=== PATIENT | female | born 1945 ===

== ENCOUNTER 2022-11-12 07:58 | Outpatient (OUT) | payer MEDICARE, OTHER, SELFPAY ==
--- NOTE | 2022-11-12 08:01 | VEIN_ITS ---
[address] [address] Patient Name: ELADIO BHATIA MRN: [id number] date: 1945 Sex: F Assigned Patient Location: Current Patient Location: Accession/Order Number: [id number] Exam Date: 11/12/2022 08:05 Report Date: 11/12/2022 10:32 At the request of: AMIE NULL Procedure: VC INJ Foam Sclerosant WUS LOOM REPAIRER PROCEDURE: VC INJ Foam Sclerosant WUS LOOM REPAIRER COMPARISON: None. HISTORY: painful varicose veins i83.813 Pre-operative Diagnosis: CEAP class C3 venous insufficiency with pain, tenderness, edema and incompetent branch saphenous vein(s), chronic venous insufficiency right leg secondary to venous incompetence Post-operative Diagnosis: CEAP class C3 venous insufficiency with pain, tenderness, edema and incompetent branch saphenous vein(s), chronic venous insufficiency right leg secondary to venous incompetence Procedure Performed: 1. Ultrasound-guided microfoam chemical ablation with Varithenaregistered 2. Intraoperative ultrasound guidance Physician: Octavio Malone M.D. Anesthesia: None Indications for Procedure: 77 year old female. Symptoms including lower extremity dilated bulging veins, pain, throbbing for many years despite conservative medical therapy including medical compression stockings, exercise and analgesics. Prior procedures include endovenous laser ablation. Multiple incompetent varicosities of the right leg. Duplex scan showed reflux and enlarged diameters up to 5 mm. The patient underwent informed consent including management options where the complications of infection, bleeding, pain, and skin injury were discussed. Particular attention was spent discussing thrombus extension and deep vein thrombosis as well as the possibility of pulmonary embolus and treatment with oral or injectable blood thinners. Procedure: The patient walked to the procedure room. All applicable staff donned appropriate apparel. A procedure timeout was performed to confirm correct patient, correct extremity, correct procedure, and correct room set-up including presence of all applicable supplies, devices, and drugs. A duplex ultrasound, performed by myself confirmed the location and incompetence of branch saphenous varicosities and their course was marked on the skin together with the dilated tributaries. The extent of treatment of the vein and the associated varicosities was determined through ultrasound mapping. The skin was prepped and then punctured with a butterfly needle and advanced under ultrasound guidance. The Varithenaregistered canister was activated and the canister was primed and purged as required in the instructions for use. Varithenaregistered was drawn into a sterile syringe. Varithenaregistered was slowly administered at 0.5-1.0 cc/second with close observation by ultrasound of its course in the vessels. Total volume utilized was: 14 mL (4 mL within an incompetent 4 mm varicosity medial to the ankle; 10 mL within the 5 mm varicosity of the proximal medial lower leg). Following administration of Varithenaregistered the leg was elevated and the patient was asked to repeatedly dorsiflex the ankle to limit flow of Varithenaregistered into perforating veins. Once appropriate spasm had been confirmed in the treated veins, the vascular catheter was removed from the leg and light pressure was applied over the puncture site for hemostasis. The common femoral and deep superficial veins were then evaluated for flow and compressibility prior to dressing placement. The lower extremity was kept elevated at 45 degrees above the horizontal and cording material was applied over the saphenous segments and tributaries to allow for eccentric compression over the target vessels including the targeted saphenous vein(s). A multilayer dressing was applied consisting of foam pads, coban and thigh-high 20-30 mm Hg compression elastic support hose were placed on the patient. The leg was lowered only after compression had been applied and the patient was immediately ambulatory. The patient ambulated 10 minutes under supervision and was without apparent concerns at time of release. Post-care instructions include advising patient to keep post-treatment bandages in place and dry for 48 hours, avoid extended periods of inactivity, avoid heavy exercise for one week, wear compression stockings on the treated leg continuously for two weeks, to walk daily for 10 minutes over the next month. The patient was instructed to take an anti-inflammatory medicine as needed and to follow up for color duplex scan of the Saphenous veins, the treated branch saphenous varicosities, the adjacent deep veins, and additional treatment within 7 days. PERSONNEL: LEON Irwin RN Electronically authenticated by: OCTAVIO MALONE Date: 11/12/2022 10:32
== END 2022-11-12 07:59 ==
LOC: VC 07:59
PROVIDERS: PCP Radiology Diagnostic Radiology; Visit Provider Radiology Diagnostic Radiology
DX: I83.813 Varicose veins of bilateral lower extremities with pain (principal)
CPT/HCPCS: 36466

== ENCOUNTER 2022-11-19 07:57 | Outpatient (OUT) | payer MEDICARE, OTHER, SELFPAY ==
--- NOTE | 2022-11-19 08:00 | VEIN_ITS ---
Patient: ELADIO BHATIA Exam Date: 11/19/2022 : 1945 Gender:F Ordering : DR JAIME TOM M.D. Admission #: [id number] Family : Order #: [id number] CLICK HERE TO VIEW EXAM RADIOLOGY REPORT PROCEDURE: VC EXT VENOUS RT LMTD COMPARISON: None. INDICATIONS: Phlebitis of superficial veins of rt lower extremity I80.01 TECHNIQUE: Lower extremity arroyo scale and Duplex Doppler evaluation of the deep venous system from the inguinal ligament through the calf veins. FINDINGS: REGION: Right lower extremity. THROMBI: Negative for DVT. Chemically induced thrombus in varicose veins medial right ankle/distal lower leg and prox/medial lower leg/knee. COMPRESSIBILITY: Non-compressible segments corresponding to thrombus. FLOW: Absent flow corresponding to thrombus OTHER: Multiple patent varicose veins remain in posterior thigh and calf measuring up to 6 mm. *Exam performed in accordance with [facility] practice guidelines- Peripheral venous ultrasound, August 30, 2009. CONCLUSION: Post ablation occlusion of treated right leg varicose veins with residual incompetent varicose veins measuring up to 6 mm Dictated by: Jaime Tom MD on 11/19/2022 at 08:31 Approved by: Jaime Tom MD on 11/19/2022 at 08:32
--- NOTE | 2022-11-19 08:00 | VEIN_ITS ---
Patient: ELADIO BHATIA Exam Date: 11/19/2022 : 1945 Gender:F Ordering : DR JAIME TOM M.D. Admission #: [id number] Family : Order #: [id number] CLICK HERE TO VIEW EXAM RADIOLOGY REPORT PROCEDURE: [facility] - OFFICE VISIT FOLLOW UP COMPARISON: None. PROGRESS NOTES: The patient reports some mild pain and discomfort of the medial right distal calf and ankle related to injections. The patient has taken over counter Tylenol and ibuprofen with good relief. The patient has followed our recommendations to walk 20-30 minutes once or twice per day since the procedure to the best of her ability. Physical exam demonstrates a large area of thrombosed superficial varicosities corresponding to patient's pain along the medial distal right calf and ankle with moderate surrounding redness. No swelling with minimal warmth. The patient had no pain in this region today. I favor thrombophlebitis over cellulitis Review of the ultrasound performed the same day demonstrates occlusive thrombus extending throughout the treated varicose veins with no deep vein thrombus. Residual varicose veins measuring up to 6 mm. The patient expressed a desire to proceed with treatment of incompetent varicose veins. We will take a pause on the right leg for the next 3-4 weeks and continue treatments micro foam chemical ablation the left leg. IMPRESSION: 1. Successful micro foam chemical ablation right leg incompetent varicose veins 2. Persistent bilateral incompetent varicose veins PLAN: Micro foam chemical ablation left leg varicose veins Nurse notes, history and physical were reviewed and confirmed, see attached forms. The nurse was present throughout the physical exam and consultation Dictated by: Jaime Tom MD on 11/19/2022 at 08:32 Approved by: Jaime Tom MD on 11/19/2022 at 08:40
== END 2022-11-19 07:58 ==
LOC: VC 07:57
PROVIDERS: PCP Radiology Diagnostic Radiology; Visit Provider Radiology Diagnostic Radiology
DX: I80.01 Phlebitis and thrombophlebitis of superficial vessels of right lower extremity (principal)
CPT/HCPCS: 93971; G0463

== ENCOUNTER 2022-12-28 12:42 | Outpatient (OUT) | payer MEDICARE, OTHER, SELFPAY ==
--- NOTE | 2022-12-28 12:46 | VEIN_ITS ---
Patient: ELADIO BHATIA Exam Date: 12/28/2022 : 1945 Gender:F Ordering : DR Jaime Tom M.D. Admission #: [id number] Family : Order #: [id number] CLICK HERE TO VIEW EXAM RADIOLOGY REPORT PROCEDURE: [facility] - OFFICE VISIT FOLLOW UP COMPARISON: [facility] EST L[facility], 11/19/2022. PROGRESS NOTES: Patient presents with large open wound involving medial aspect of lower right leg just above the medial malleolus. Wound is moist with areas of scabbing versus a chronic tissue centrally. Prominent erythema surrounding the right ankle and extending cephalad to mid calf. VEIN/[facility] EST LMTD IMPRESSION: 1. Large open wound involving the distal medial lower right leg at site of prior of Varithena injection for vein closure. Wound may be secondary to reaction with the Varithena, secondary to infection, or interval injury. Area was documented to be normal in appearance during evaluation 9 days post procedure. 2. Patient has been referred to the wound clinic who will see patient today. 3. Findings, recommendations, and plan were explained to the patient and the patient's son who was also present. Nurse notes, history and physical were reviewed and confirmed, see attached forms. The nurse was present throughout the physical exam and consultation Dictated by: Octavio Malone M.D. on 12/28/2022 at 14:05 Approved by: Octavio Malone M.D. on 12/28/2022 at 14:11
--- NOTE | 2022-12-28 12:46 | VEIN_ITS ---
Patient: ELADIO BHATIA Exam Date: 12/28/2022 : 1945 Gender:F Ordering : DR Jaime Tom M.D. Admission #: [id number] Family : Order #: [id number] CLICK HERE TO VIEW EXAM RADIOLOGY REPORT PROCEDURE: VC EXT VENOUS RT LMTD COMPARISON: VC EXT VENOUS RT LMTD, 11/19/2022. INDICATIONS: Phlebitis of superficial veins of rt lower extremity I80.01 TECHNIQUE: Lower extremity arroyo scale and Duplex Doppler evaluation of the deep venous system from the inguinal ligament through the calf veins. FINDINGS: REGION: Right lower extremity. THROMBI: Negative for DVT. Varithena induced thrombus visualized in area of concern at dist/med calf. COMPRESSIBILITY: Non-compressible segments. FLOW: Areas of no flow. OTHER: CONCLUSION: 1. No deep vein thrombus within the left lower extremity. 2. Thrombosed superficial veins in area of treatment as expected. 3. No subcutaneous abscess or fluid collection in area of wound. Dictated by: Octavio Malone M.D. on 12/28/2022 at 14:02 Approved by: Octavio Malone M.D. on 12/28/2022 at 14:05
== END 2022-12-28 12:43 | disposition home or self-care (01) ==
LOC: VC 12:42
PROVIDERS: PCP Radiology Diagnostic Radiology; Visit Provider Radiology Diagnostic Radiology
DX: I80.01 Phlebitis and thrombophlebitis of superficial vessels of right lower extremity (principal)
CPT/HCPCS: 93971; G0463

== ENCOUNTER 2022-12-28 13:51 | Outpatient (OUT) | payer MEDICARE, OTHER, SELFPAY | END 2022-12-28 13:52 | disposition home or self-care (01) | LOC: WC 13:51 | PROVIDERS: PCP Radiology Diagnostic Radiology; Visit Provider Physician Assistant | DX: I80.01 Phlebitis and thrombophlebitis of superficial vessels of right lower extremity (principal); I87.311 Chronic venous hypertension (idiopathic) with ulcer of right lower extremity; L97.318 Non-pressure chronic ulcer of right ankle with other specified severity | CPT/HCPCS: 11042; 93971; A6213; G0463 ==

== ENCOUNTER 2023-01-11 09:34 | Outpatient (OUT) | payer MEDICARE, OTHER, SELFPAY | END 2023-01-11 09:35 | disposition home or self-care (01) | LOC: WC 09:34 | PROVIDERS: PCP Radiology Diagnostic Radiology; Visit Provider Podiatrist Foot & Ankle Surgery | DX: I87.311 Chronic venous hypertension (idiopathic) with ulcer of right lower extremity (principal); L97.318 Non-pressure chronic ulcer of right ankle with other specified severity | CPT/HCPCS: 11042; A6213 ==